=== PATIENT | male | born 1945 | race Caucasian/White ===

== ENCOUNTER → 2018-11-03 | Emergency (ER) | payer MEDICARE, OTHER ==
--- NOTE | 2018-11-04 10:18 | EDM.PDOC ---
ED HPI GENERAL MEDICAL PROBLEM - General Stated Complaint: SOB Time Seen by Provider: 11/03/18 14:35 Source of Information: Reports: Patient, Family History Limitations: Reports: No Limitations - History of Present Illness INITIAL COMMENTS - FREE TEXT/NARRATIVE: This is a 73yo M here for shortness of breath. He states he has been feeling short of breath for the past few months and feels today is just worse. He can't catch his breath or move very far. He has a history of COPD and on inhalers but denies any prior history of hospital admission or other treatment. Onset: Gradual Duration: Week(s):, Getting Worse Location: Reports: Chest Severity: Mild Improves with: Reports: None Worsens with: Reports: Movement Context: Reports: Activity ED ROS GENERAL - Review of Systems Review Of Systems: ROS reveals no pertinent complaints other than HPI. ED EXAM, GENERAL - Physical Exam Exam: See Below Exam Limited By: No Limitations General Appearance: Alert, WD/WN, No Apparent Distress Eye Exam: Bilateral Eye: EOMI, PERRL Ears: Normal External Exam Nose: Normal Inspection Throat/Mouth: Normal Inspection Head: Atraumatic, Normocephalic Neck: Normal Inspection Respiratory/Chest: Decreased Breath Sounds, Wheezing Cardiovascular: Normal Peripheral Pulses, Regular Rate, Rhythm, No Edema, No Gallop Peripheral Pulses: 2+: Dorsalis Pedis (L), Dorsalis Pedis (R) Extremities: Normal Inspection Neurological: Alert, Oriented Psychiatric: Normal Affect, Normal Mood Skin Exam: Warm, Dry, Intact Departure - Departure Time of Disposition: 15:00 Disposition: Home, Self-Care 01 Condition: Good Clinical Impression: COPD (chronic obstructive pulmonary disease) Qualifiers: COPD type: COPD with acute exacerbation Qualified Code(s): J44.1 - Chronic obstructive pulmonary disease with (acute) exacerbation - Discharge Information Referrals: PCP,None [Primary Care Provider] - - Problem List & Annotations (1) COPD (chronic obstructive pulmonary disease) SNOMED Code(s): 09801240 Code(s): J44.9 - CHRONIC OBSTRUCTIVE PULMONARY DISEASE, UNSPECIFIED Status : Acute Priority: High Current Visit: Yes Qualifiers: COPD type: COPD with acute exacerbation Qualified Code(s): J44.1 - Chronic obstructive pulmonary disease with (acute) exacerbation - Problem List Review Problem List Initiated/Reviewed/Updated: Yes - Assessment/Plan Plan: Counseled on discharge. Discussed COPD management and use of antibiotics, prednisone and nebulizer. Discussed side effects and rtc or ER as needed if symptoms persist or worsen. 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
== END | disposition home or self-care (01) ==
LOC: LB.ED 14:26
DX: J44.1 Chronic obstructive pulmonary disease with (acute) exacerbation (principal)
CPT/HCPCS: 99284

== ENCOUNTER 2020-10-14 07:29 | Emergency (ER) | payer MEDICARE, OTHER ==
[2020-10-14] MEDS: Albuterol/Ipratropium 3.0-0.5 MG/3 ML Neb Soln NEB PRN (07:48)
[2020-10-14] MEDS: Albuterol/Ipratropium 3.0-0.5 MG/3 ML Neb Soln ONE ×3 (07:51→09:59)
[2020-10-14 07:58] VITALS: BP 139/86; PULSE 70
[2020-10-14] MEDS: predniSONE 20 MG Tab PO SCH (08:21)
[2020-10-14] MEDS: predniSONE 20 MG Tab ONE (08:34)
[2020-10-14] MEDS: metFORMIN 500 MG Tab PO ONE (09:50)
[2020-10-14] MEDS ORDERED: Albuterol/Ipratropium 3.0-0.5 MG/3 ML Neb Soln ONE (09:50)
[2020-10-14] MEDS ORDERED: predniSONE 10 MG Tab ONE (09:50)
[2020-10-14] MEDS ORDERED: metFORMIN 500 MG Tab ONE (09:50)
[2020-10-14] MEDS: metFORMIN 500 MG Tab ONE ×2 (09:58→09:59)
--- NOTE | 2020-10-14 16:43 | ER ---
REASON FOR EMERGENCY ROOM VISIT: Shortness of breath. HISTORY: This 75-year-old gentleman has a history of COPD. He and his are staying at the [facility], but resides in [place]. They plan on staying in the area for another 10 days or so. His COPD dates back 10 years. He just discontinued smoking 3 years ago. He has on occasion required steroids. He does have oxygen that he uses on a p.r.n. basis at home and he has used DuoNeb with flare-ups of his COPD, but he neglected to bring his nebulizer along when they came up for [place] this past week. Over the past 3 days, he has had increasing shortness of breath to the point where he decided to come in and have it checked out and receive some additional treatment. He has not had any fever or chills. He has not had any significant coughing at all. His shortness of breath reached to the point where he developed some significant anxiety along with this. Both he and his have received COVID vaccines this past spring. It should also be mentioned that the patient has been told he has "borderline" diabetes and that his last hemoglobin A1c was around 7. He last saw his provider for an annual physical one month ago. He was told at that time that his sugars were "borderline." He has had some increased polydipsia and polyuria. He denies any chest pain or symptoms suggestive of TIA or stroke. His normal COPD maintenance consists of inhalers including an albuterol rescue inhaler. REVIEW OF SYSTEMS: Pertinent positives and negatives as listed in the HPI. PAST MEDICAL HISTORY: Significant for: 1. Pacemaker. 2. COPD as described above. 3. Hernia repair, cholecystectomy, and TURP. 4. History of depression. FAMILY HISTORY: Significant in both his father and grandfather had diabetes type 2. MEDICATIONS: Include: 1. Flecainide 50 mg p.o. b.i.d. 2. Acetaminophen with codeine p.r.n. 3. Albuterol inhaler p.r.n. 4. Trelegy inhaler. 5. Protonix 40 mg p.o. daily. 6. Buspirone 5 mg p.o. t.i.d. 7. Simvastatin 40 mg p.o. daily. 8. Mirapex 0.25 mg p.o. b.i.d. ALLERGIES: NONE TO MEDICATIONS. PHYSICAL EXAMINATION: GENERAL: He is a pleasant, alert man who is hard of hearing, but in no acute distress. VITAL SIGNS: He is afebrile. Heart rate was 76, blood pressure 137/76. Respiratory rate was 24 initially and this decreased to 20 after a DuoNeb treatment. O2 sats 92% on room air on admission and this increased to 97% after a DuoNeb treatment. HEENT: Head is normocephalic. No scleral icterus or conjunctivitis. Oropharynx is normal. NECK: Supple. No bruits. No JVD. No adenopathy. CHEST: Somewhat diminished breath sounds bilaterally, but otherwise clear to auscultation with no wheezes, rhonchi, or rales. CARDIAC: Regular rate without murmur. ABDOMEN: Obese, soft, nontender. No palpable mass. No hepatosplenomegaly. EXTREMITIES: Normal pulses. No edema. No deformities. NEUROLOGIC: He is awake and alert and follows commands. He moves all 4 extremities well. Cranial nerves 2 through 12 are intact. Muscle strength bulk and tone are normal and symmetrical bilaterally in the upper and lower extremities. Sensory is normal to crude touch with no evidence of neuropathy. LABORATORY DATA: CBC shows a white count of 14, 900. His hemoglobin is 14.3. His platelet count is 90,000. His CMP shows that his electrolytes are normal with the exception of a borderline low sodium at 133. His creatinine is 1.4 with an estimated creatinine clearance of 53 and an estimated GFR of 49. His blood sugar is 477, but his anion gap is normal at 14.3. His AST is elevated at 49 with an ALT of 98. Alkaline phosphatase and total bilirubin are normal. A SARS-CoV-2 RNA rapid test was negative. IMAGING DATA: A chest x-ray shows some scarring in both lung garcia, but no definite acute infiltrates. IMPRESSION: 1. Chronic obstructive pulmonary disease with acute exacerbation. 2. Hyperglycemia, probably new onset type 2 diabetes mellitus. FURTHER EMERGENCY ROOM COURSE: He received 1 DuoNeb treatment and 40 mg of prednisone p.o. In the absence of coughing or fever, I elected not to give him any antibiotics. Following DuoNeb treatment, he had substantial improvement in his shortness of breath to the point where he was back to baseline. A long discussion was undertaken regarding his COPD and his newly diagnosed diabetes. I emphasized to him the importance of initiating therapy for his diabetes at this point in time, even though he will not be home for another 10 days. For this reason, I started him on metformin 500 mg p.o. once daily before the evening meal. I discussed potential side effects including GI side effects, etc., with him, so he understands this. I feel it is vitally important for him to follow up and have another fasting blood sugar and CMP early next week. He did not have his nebulizer and the pharmacy is currently closed, but I did give him some DuoNeb packets to take home with him. He feels that he can get a nebulizer from the pharmacy on Friday. I also gave him a prescription for metformin 500 mg, dispensed #30, and we did talk about diet and exercise in the management of his diabetes. He does exercise to certain extent and he does have a stationary bike. I directed him to some useful patient education sites on the Internet, most notably the one from the [facility] and he can refer to these for dietary management of his type 2 diabetes. I told him that he can expect the possibility of some mild GI upset, mainly loose stools for a few days, but many times this is a transient phenomenon and people generally tolerate the medication very well. The other reason for starting him on metformin was that he does not have any potential cardiovascular side effects and it is inexpensive as well as very effective. All the questions were answered. They understand and agree with this plan. In addition to his followup next week here, I told him that it is vitally important for him to follow up with his provider back home for continued monitoring and management of his diabetes. He understands and his also understands and they agree with this plan. ZACH /[id number]
--- NOTE | 2020-10-15 08:11 | CR ---
Date of Service: 10/14/20 Clinical Data: SOB PA AND LATERAL CHEST: No priors. The heart size is normal. There is a cardiac pacer overlying the left chest with the distal pacer wires in the region of the right atrium and right ventricle. The aorta is ectatic. There are emphysematous changes throughout both lungs with scattered reticular opacities throughout both lungs. The lungs are otherwise clear. No pneumothorax. No pleural effusions. There is degenerative disk disease at multiple levels in the thoracic spine. [id number] MTDD
== END 2020-10-14 09:55 | disposition home or self-care (01) ==
LOC: LB.ED 07:29
DX: J44.1 Chronic obstructive pulmonary disease with (acute) exacerbation (principal); E11.65 Type 2 diabetes mellitus with hyperglycemia; Z79.899 Other long term (current) drug therapy; Z20.822 Contact with and (suspected) exposure to COVID-19
CPT/HCPCS: 36415; 71046; 80053; 85025; 99285-25; A9270-GY; J7512; J7620-GY; U0002